=== PATIENT | female | born 1985 | race American Indian/Alaskan Native ===

== ENCOUNTER 2017-09-18 09:31 | Emergency (ER) | payer OTHER ==
[2017-09-18 10:10] VITALS: BP 164/114
--- NOTE | 2017-09-18 12:27 | Emergency Department Report ---
Blank Doc - Documentation Documentation: - HPI Chief Complaint: Seizure Stated Complaint: SEIZURE Time Seen by Provider: 09/18/17 12:19 Duration: 3 Days Severity: moderate Minor Respiratory: Yes Rhinorrhea, Yes Sore Throat, Yes Able to Tolerate Fluids , Yes Ear Pain (L>R), Yes Cough (non productive), No Sick Contacts, No Hemoptysis, No Chest Pain, No Shortness of Breath, No Fever ED Review of Systems ROS: Stated complaint: SEIZURE Other details as noted in HPI Comment: All other systems reviewed and negative ED Past Medical Hx - Past Medical History Previous Medical History?: Yes Hx Hypertension: Yes Hx Diabetes: Yes Hx Seizures: Yes - Surgical History Past Surgical History?: Yes Additional Surgical History: abd hernia repair - Social History Smoking Status: Never Smoker Substance Use Type: Alcohol - Medications Home Medications: Home Medications Medication Instructions Recorded Confirmed Last Taken Type Amoxicillin/Potassium Clav 1 each PO BID #14 tablet 09/18/17 Unknown Rx [Augmentin 875-125 Tablet] predniSONE [Deltasone] 20 mg PO QDAY #5 tab 09/18/17 Unknown Rx traMADol [Ultram] 50 mg PO Q6HR PRN #12 tablet 09/18/17 Unknown Rx Minor Respiratory Exam - Exam General: Vital signs noted. No distress. Alert and acting appropriately. HEENT: Yes Pharyngeal Erythema, Yes Moist Mucous Membranes, No Pharyngeal Exudates, No Rhinorrhea, No Conjuctival Injection, No Frontal Tenderness, No Maxillary Tenderness Ear: Left TM Erythema, Both TM Bulge, Neither EAC Pain, Neither EAC Discharge Neck: Yes Supple, No Adenopathy Lungs: Yes Good Air Exchange, No Wheezes, No Ronchi, No Stridor, No Cough, No Labored Respirations, No Retractions, No Use of Accessory Muscles, No Other Abnormal Lung Sounds Heart: Yes Regular, No Murmur Abdomen: Yes Normal Bowel Sounds, No Tenderness, No Peritoneal Signs Skin: No Rash, No Edema Neurologic: Alert and oriented, no deficits. Musculoskeletal: Unremarkable. ED Course Vital Signs 09/18/17 10:32 Temperature 98.1 F Pulse Rate 117 H Respiratory 18 Rate Blood Pressure 156/128 O2 Sat by Pulse 97 Oximetry ED Medical Decision Making - Medical Decision Making Is a smoker, will be treated with antibiotics for these symptoms. Critical care attestation.: If time is entered above; I have spent that time in minutes in the direct care of this critically ill patient, excluding procedure time. ED Disposition Clinical Impression: Upper respiratory infection Qualifiers: URI type: unspecified URI Qualified Code(s): J06.9 - Acute upper respiratory infection, unspecified Otitis media Qualifiers: Otitis media type: suppurative Chronicity: acute Laterality: bilateral Recurrence: not specified as recurrent Spontaneous tympanic membrane rupture: without spontaneous rupture Qualified Code(s): H66.003 - Acute suppurative otitis media without spontaneous rupture of ear drum, bilateral Disposition: TO HOME OR SELFCARE Is pt being admited?: No Does the pt Need Aspirin: No Condition: Stable Instructions: Upper Respiratory Infection (ED), Otitis Media (ED) Referrals: PRIMARY CARE, [Primary Care Provider] - 3-5 Days
== END 2017-09-18 12:35 | disposition home or self-care (01) ==
LOC: ED 09:31
DX: J06.9 Acute upper respiratory infection, unspecified (principal); H66.003 Acute suppurative otitis media without spontaneous rupture of ear drum, bilateral; I10 Essential (primary) hypertension; E11.9 Type 2 diabetes mellitus without complications; Z88.2 Allergy status to sulfonamides
CPT/HCPCS: 99282

== ENCOUNTER 2018-05-28 21:07 | Emergency (ER) | payer OTHER ==
--- NOTE | 2018-05-28 21:43 | Emergency Department Report ---
Blank Doc - Documentation Documentation: This is a 32-year-old female that presents with vaginal bleeding. This initial assessment/diagnostic orders/clinical plan/treatment(s) is/are subject to change based on patient's health status, clinical progression and re- assessment by fellow clinical providers in the ED. Further treatment and workup at subsequent clinical providers discretion. Patient/guardians urged not to elope from the ED as their condition may be serious if not clinically assessed and managed. Initial orders include: 1- Patient sent to [facility] for further evaluation and treatment 2- UA 3- Labs
[2018-05-28 21:47] VITALS: BP 165/110
[2018-05-28 22:45] LABS: Bacteria,Urine 1+ /HPF (Negative); Bilirubin,Urine NEG (Negative); Blood,Urine SM (Negative); Color,Urine Yellow (Yellow); Mucus,Urine FEW /HPF; Protein,Urine <15 mg/dL mg/dL (Negative); WBC,Urine < 1.0 /HPF (0.0-6.0)
[2018-05-28 22:53] LABS: Basophils # (Auto) 0.1 K/mm3 (0.0-0.1); Basophils % (Auto) 1.7 % (0.0-1.8); Eosinophils # (Auto) 0.3 K/mm3 (0.0-0.4); Eosinophils % (Auto) 5.6 % (0.0-4.3); Hematocrit 36.9 % (30.3-42.9); Hemoglobin 13.3 gm/dl (10.1-14.3); Lymphocytes % (Auto) 43.6 % (13.4-35.0); Mean Corpuscular HGB Conc 36 % (30-34); Mean Corpuscular Volume 96 fl (79-97); Monocytes # (Auto) 0.3 K/mm3 (0.0-0.8); Platelet Count 233 K/mm3 (140-440); Red Blood Count 3.83 M/mm3 (3.65-5.03); Red Cell Distribution Width 12.8 % (13.2-15.2)
[2018-05-28 23:08] LABS: BUN/Creatinine Ratio 10; Blood Urea Nitrogen 7 mg/dL (7-17); Calcium 9.2 mg/dL (8.4-10.2); Hemolysis Index 28
== END 2018-05-29 01:30 | disposition left against medical advice (07) ==
LOC: ED 21:07
DX: N93.9 Abnormal uterine and vaginal bleeding, unspecified (principal); Z53.21 Procedure and treatment not carried out due to patient leaving prior to being seen by health care provider
CPT/HCPCS: 36415; 80048; 81001; 84703; 85025

== ENCOUNTER 2018-12-26 19:50 | Emergency (ER) | payer OTHER ==
--- NOTE | 2018-12-26 21:32 | Emergency Department Report ---
ED Female HPI - General Chief complaint: Vaginal Bleeding Stated complaint: VAGINAL BLEEDING Time Seen by Provider: 12/26/18 21:25 Source: patient Mode of arrival: Ambulatory Limitations: No Limitations - History of Present Illness Initial comments: 33-year-old -[place] female presents to the emergency room for vaginal spotting. Patient states that she has back pain pelvic cramping and noticed blood when she wiped. Patient reports that she had a partial hysterectomy in 2013. Patient denies any dysuria. Patient denies any past medical history. Patient currently takes no medications on a daily basis and has allergies to sulfa medications. MD Complaint: vaginal bleeding - Related Data Previous Rx's Medication Instructions Recorded Last Taken Type Amoxicillin/Potassium Clav 1 each PO BID #14 tablet 09/18/17 Unknown Rx [Augmentin 875-125 Tablet] predniSONE [Deltasone] 20 mg PO QDAY #5 tab 09/18/17 Unknown Rx traMADoL [Ultram] 50 mg PO Q6HR PRN #10 tablet 09/18/17 Unknown Rx Allergies Allergy/AdvReac Type Severity Reaction Status Date / Time Sulfa (Sulfonamide Allergy Angioedema Verified 09/18/17 10:06 Antibiotics) ED Review of Systems ROS: Stated complaint: VAGINAL BLEEDING Other details as noted in HPI ED Past Medical Hx - Past Medical History Previous Medical History?: Yes Hx Hypertension: Yes - Surgical History Past Surgical History?: Yes Additional Surgical History: partial hysterectomy 2013 - Social History Smoking Status: Never Smoker Substance Use Type: Marijuana - Medications Home Medications: Home Medications Medication Instructions Recorded Confirmed Last Taken Type Amoxicillin/Potassium Clav 1 each PO BID #14 tablet 09/18/17 Unknown Rx [Augmentin 875-125 Tablet] predniSONE [Deltasone] 20 mg PO QDAY #5 tab 09/18/17 Unknown Rx traMADoL [Ultram] 50 mg PO Q6HR PRN #10 tablet 09/18/17 Unknown Rx ED Physical Exam - General Limitations: No Limitations General appearance: alert, in no apparent distress - Head Head exam: Present: atraumatic, normocephalic - Eye Eye exam: Present: normal appearance - ENT ENT exam: Present: mucous membranes moist - GI/Abdominal GI/Abdominal exam: Present: soft, normal bowel sounds. Absent: distended, tenderness - External exam: Present: normal external exam Speculum exam: Present: normal speculum exam Bi-manual exam: Present: normal bi-manual exam - Extremities Exam Extremities exam: Present: normal inspection, full ROM ED Course Vital Signs 12/26/18 20:44 Temperature 98.1 F Pulse Rate 118 H Respiratory 18 Rate Blood Pressure 180/133 O2 Sat by Pulse 100 Oximetry ED Medical Decision Making - Lab Data Result diagrams: 12/26/18 21:33 Critical care attestation.: If time is entered above; I have spent that time in minutes in the direct care of this critically ill patient, excluding procedure time. ED Disposition Clinical Impression: Vaginal spotting Disposition: DC-01 TO HOME OR SELFCARE Is pt being admited?: No Does the pt Need Aspirin: No Condition: Stable Additional Instructions: Wet prep is negative for any yeast, 2 vaginosis or Trichomonas. Urinalysis is negative for any urinary tract infection. Follow up with her primary care provider Referrals: DUSTIN CERVANTES MD [Primary Care Provider] - 3-5 Days [facility] [Provider Group] - 3-5 Days
[2018-12-26 21:48] LABS: Basophils % (Auto) 0.9 % (0.0-1.8); Eosinophils # (Auto) 0.1 K/mm3 (0.0-0.4); Eosinophils % (Auto) 2.4 % (0.0-4.3); Hematocrit 40.2 % (30.3-42.9); Hemoglobin 13.6 gm/dl (10.1-14.3); Lymphocytes # (Auto) 2.1 K/mm3 (1.2-5.4); Lymphocytes % (Auto) 39.6 % (13.4-35.0); Mean Corpuscular HGB Conc 34 % (30-34); Mean Corpuscular Volume 96 fl (79-97); Monocytes # (Auto) 0.4 K/mm3 (0.0-0.8); Monocytes % (Auto) 7.8 % (0.0-7.3); Platelet Count 231 K/mm3 (140-440); Red Cell Distribution Width 12.9 % (13.2-15.2)
[2018-12-26 22:36] LABS: Bacteria,Urine 1+ /HPF (Negative); Bilirubin,Urine NEG (Negative); Blood,Urine SM (Negative); Color,Urine Yellow (Yellow); Mucus,Urine FEW /HPF; Urobilinogen,Urine < 2.0 mg/dL (<2.0)
[2018-12-26 23:52] VITALS: BP 179/124
== END 2018-12-26 23:40 | disposition home or self-care (01) ==
LOC: ED 19:50
DX: N93.9 Abnormal uterine and vaginal bleeding, unspecified (principal); I10 Essential (primary) hypertension; F12.10 Cannabis abuse, uncomplicated
CPT/HCPCS: 36415; 81001; 85025; 87210

== ENCOUNTER 2019-03-02 20:04 | Emergency (ER) | payer OTHER ==
[2019-03-02 20:11] VITALS: BP 159/116
--- NOTE | 2019-03-02 23:16 | XRay Report ---
LEFT FOOT 3 VIEWS INDICATION / CLINICAL INFORMATION: Left foot pain/swelling. COMPARISON: None available. FINDINGS: BONES and JOINT(S): No acute fracture or subluxation. No significant arthritis. SOFT TISSUES: No significant abnormality. ADDITIONAL FINDINGS: None. IMPRESSION: 1. No acute findings. Signer Name: Bo Dugan MD Signed: 03/02/2019 11:12 PM Workstation Name: [id number]
[2019-03-02] MEDS ORDERED: KETOROLAC 10 MG TAB PO ONE (23:42)
--- NOTE | 2019-03-02 23:42 | Emergency Department Report ---
ED Extremity Problem HPI - General Chief complaint: Extremity Injury, Lower Stated complaint: LEFT FOOT PAIN Time Seen by Provider: 03/02/19 23:09 Source: patient Mode of arrival: Wheelchair Limitations: No Limitations, Physical Limitation - History of Present Illness Initial comments: 33 year old female presents to ED c/o dorsal left foot pain. Patient reports that her brother accidentally "stomped" on her left foot saturday night. She states he was wearing sneakers and she had on Ugs. She reports increased pain, swelling and bruising the next day. She states she did take aleve yesterday. She reports no other symptoms at this time. MD Complaint: joint swelling, joint paint -: Sudden (Saturday) Location: lower extremity (Left foot) - Related Data Previous Rx's Medication Instructions Recorded Last Taken Type Amoxicillin/Potassium Clav 1 each PO BID #14 tablet 09/18/17 Unknown Rx [Augmentin 875-125 Tablet] predniSONE [Deltasone] 20 mg PO QDAY #5 tab 09/18/17 Unknown Rx traMADoL [Ultram] 50 mg PO Q6HR PRN #10 tablet 09/18/17 Unknown Rx Ketorolac [Toradol] 10 mg PO Q6HR PRN #20 tablet 03/02/19 Unknown Rx Allergies Allergy/AdvReac Type Severity Reaction Status Date / Time Sulfa (Sulfonamide Allergy Angioedema Verified 09/18/17 10:06 Antibiotics) ED Review of Systems ROS: Stated complaint: LEFT FOOT PAIN Other details as noted in HPI Comment: All other systems reviewed and negative Constitutional: denies: chills, fever Musculoskeletal: joint swelling, arthralgia Neurological: denies: headache, weakness, numbness, paresthesias, confusion, abnormal gait, vertigo ED Past Medical Hx - Past Medical History Hx Hypertension: Yes - Surgical History Additional Surgical History: partial hysterectomy 2013 - Social History Smoking Status: Never Smoker Substance Use Type: None - Medications Home Medications: Home Medications Medication Instructions Recorded Confirmed Last Taken Type Amoxicillin/Potassium Clav 1 each PO BID #14 tablet 09/18/17 Unknown Rx [Augmentin 875-125 Tablet] predniSONE [Deltasone] 20 mg PO QDAY #5 tab 09/18/17 Unknown Rx traMADoL [Ultram] 50 mg PO Q6HR PRN #10 tablet 09/18/17 Unknown Rx Ketorolac [Toradol] 10 mg PO Q6HR PRN #20 tablet 03/02/19 Unknown Rx ED Physical Exam - General Limitations: No Limitations, Physical Limitation General appearance: alert, in no apparent distress - Head Head exam: Present: atraumatic, normocephalic, normal inspection - Eye Eye exam: Present: normal appearance, PERRL, EOMI Pupils: Present: normal accommodation - Respiratory Respiratory exam: Absent: respiratory distress - Cardiovascular Cardiovascular Exam: Present: regular rate - Expanded Lower Extremity Exam Left Foot/Toe exam: Present: tenderness (dorsal left foot mainly over the first and second metatarsal bones with mild swelling and bruising noted over those areas; no acute deformity; dorsalis pulse nl) - Neurological Exam Neurological exam: Present: alert, oriented X3, CN II-XII intact. Absent: motor sensory deficit - Skin Skin exam: Present: intact ED Course Vital Signs 03/02/19 03/02/19 20:10 22:40 Temperature 99.1 F 99.1 F Pulse Rate 97 H 97 H Respiratory 18 18 Rate Blood Pressure 159/116 159/116 O2 Sat by Pulse 99 100 Oximetry ED Medical Decision Making - Radiology Data Radiology results: report reviewed Patient: JOSE DO MR#: [id number] : 1985 Acct:[id number] Age/Sex: 33 / F ADM Date: 03/02/19 Loc: ED Attending Dr: Ordering Physician: TOREY FIGUEROA NP Date of Service: 03/02/19 Procedure(s): XR foot 3+V LT Accession Number(s): [id number] cc: TOREY FIGUEROA NP Fluoro Time In Minutes: LEFT FOOT 3 VIEWS INDICATION / CLINICAL INFORMATION: Left foot pain/swelling. COMPARISON: None available. FINDINGS: BONES and JOINT(S): No acute fracture or subluxation. No significant arthritis. SOFT TISSUES: No significant abnormality. ADDITIONAL FINDINGS: None. IMPRESSION: 1. No acute findings. Signer Name: Bo Dugan MD Signed: 03/02/2019 11:12 PM Workstation Name: [id number] Transcribed By: ARVIND Dictated By: Bo Dugan MD Electronically Authenti cated By: Bo Dugan MD Signed Date/Time: 03/02/192311 DD/ 09 TD/TT: Critical care attestation.: If time is entered above; I have spent that time in minutes in the direct care of this critically ill patient, excluding procedure time. ED Disposition Clinical Impression: Contusion, foot Disposition: - TO HOME OR SELFCARE Is pt being admited?: No Does the pt Need Aspirin: No Condition: Stable Instructions: Foot Contusion (ED), RICE Therapy (ED) Additional Instructions: Rest, ice and elevate leg as often as possible for the next 2-3 days; Take medic ations as prescribed; Follow up with certified medical coding specialist in 2 weeks if symptoms persist. Prescriptions: Ketorolac [Toradol] 10 mg PO Q6HR PRN #20 tablet PRN Reason: Pain , Severe (7-10) Referrals: EMMA HAMEED [Other] - 3-5 Days SARAH BRENNAN MD [Staff Physician] - 03/16/19 Forms: Work/School Release Form Time of Disposition: 23:44
== END 2019-03-03 00:27 | disposition home or self-care (01) ==
LOC: ED 20:04
DX: S90.32XA Contusion of left foot, initial encounter (principal); I10 Essential (primary) hypertension; Z90.711 Acquired absence of uterus with remaining cervical stump; Z79.899 Other long term (current) drug therapy; Z88.2 Allergy status to sulfonamides; X58.XXXA Exposure to other specified factors, initial encounter; Y93.89 Activity, other specified; Y92.89 Other specified places as the place of occurrence of the external cause; Y99.8 Other external cause status